=== PATIENT | male | born 1955 | race Caucasian/White ===

== ENCOUNTER 2018-01-06 12:53 | Observation (INO) | payer OTHER, BC ==
--- NOTE | 2018-01-06 13:34 | RAD REPORT ---
EXAM DESCRIPTION: CT - Head Brain Wo Cont - 01/06/2018 1:24 pm CLINICAL HISTORY: Mental status change, weakness COMPARISON: None. TECHNIQUE: Axial 5 mm thick images of the head were obtained without IV contrast. All CT scans are performed using dose optimization technique as appropriate and may include automated exposure control or mA/KV adjustment according to patient size. FINDINGS: No intracranial hemorrhage, mass, edema or shift of mid-line structures. No acute cortical based infarction. No cortical edema or sulcal effacement. Moderate severity atrophy and chronic isch emic changes are present. Ventriculomegaly is present. This is out of proportion to the amount of vol ume loss. Physiologic calcifications are present. Mastoid air cells are clear. Patchy mucosal thickening in the ethmoid air cells. Small air-fluid leve ls in the maxillary sinuses. No acute bony findings. IMPRESSION: No acute infarction identifiable. No hemorrhage, mass or acute intracranial finding. At least moderate severity atrophy and chronic ischemic changes are present. Chronic ischemic change can mask nonhemorrhagic acute CVA. Ventriculomegaly out of proportion to volume loss. Correlation is needed with any normal pressure hyd rocephalus clinical findings. Bilateral maxillary sinusitis.
--- NOTE | 2018-01-06 14:13 | EDPHYS ---
Physician Documentation [facility] Name: Justin Cedeno Age: 62 yrs Sex: Male : 1955 Arrival Date: 01/06/2018 Time: 12:58 Bed 26 Private MD: Jefry Felipe S ED Physician Car Gorman HPI: 01/06 14:07 This 62 yrs old Male presents to ER via Wheelchair with complaints of Altered torrey Mental Status. 14:07 The patient presents with confusion, decreased mental status, trouble concentrating. torrey Onset: The symptoms/episode began/occurred 3 day(s) ago. Possible causes: sepsis, unknown. Associated signs and symptoms: Pertinent positives: confusion, lightheadedness. Current symptoms: In the emergency department the patient's symptoms are unchanged from the initial presentation, despite home interventions. Patient's baseline: Neuro: alert but confused. The patient has experienced similar episodes in the past, a few times. Historical: - Allergies: 12:58 No Known Allergies; aa5 - Home Meds: 12:58 lisinopril 5 mg Oral tab 1 tab once daily [Active]; Namenda 10 mg oral tab 1 tab 2 aa5 times per day [Active]; donepezil 10 mg oral tab twice a day [Active]; - PMHx: 12:58 Hypertension; Dementia; aa5 - PSHx: 12:58 Knee surgery; Tonsillectomy; aa5 - Immunization history:: Pneumococcal vaccine is not up to date, Flu vaccine is up to date. - Social history:: Smoking status: Patient/guardian denies using tobacco. - Ebola Screening: : No symptoms or risks identified at this time. - Family history:: not pertinent. ROS: 14:07 Constitutional: Negative for fever, chills, and weight loss, Eyes: Negative for injury, torrey pain, redness, and discharge, ENT: Negative for injury, pain, and discharge, Neck: Negative for injury, pain, and swelling, Cardiovascular: Negative for chest pain, palpitations, and edema, Abdomen/GI: Negative for abdominal pain, nausea, vomiting, diarrhea, and constipation, Back: Negative for injury and pain, : Negative for injury, bleeding, discharge, and swelling, MS/Extremity: Negative for injury and deformity, Skin: Negative for injury, rash, and discoloration, Psych: Negative for depression, anxiety, suicide ideation, homicidal ideation, and hallucinations, Allergy/Immunology: Negative for hives, rash, and allergies, Endocrine: Negative for neck swelling, polydipsia, polyuria, polyphagia, and marked weight changes, Hematologic/Lymphatic: Negative for swollen nodes, abnormal bleeding, and unusual bruising. 14:07 Respiratory: Positive for cough, with no reported sputum. 14:07 Neuro: Positive for altered mental status, known dementia. Exam: 14:07 Constitutional: This is a well developed, well nourished patient who is awake, alert, torrey and in no acute distress. Head/Face: Normocephalic, atraumatic. Eyes: Pupils equal round and reactive to light, extra-ocular motions intact. Lids and lashes normal. Conjunctiva and sclera are non-icteric and not injected. Cornea within normal limits. Periorbital areas with no swelling, redness, or edema. ENT: Nares patent. No nasal discharge, no septal abnormalities noted. Tympanic membranes are normal and external auditory canals are clear. Oropharynx with no redness, swelling, or masses, exudates, or evidence of obstruction, uvula midline. Mucous membranes moist. Neck: Trachea midline, no thyromegaly or masses palpated, and no cervical lymphadenopathy. Supple, full range of motion without nuchal rigidity, or vertebral point tenderness. No Meningismus. Chest/axilla: Normal chest wall appearance and motion. Nontender with no deformity. No lesions are appreciated. Cardiovascular: Regular rate and rhythm with a normal S1 and S2. No gallops, murmurs, or rubs. Normal PMI, no JVD. No pulse deficits. Respiratory: Lungs have equal breath sounds bilaterally, clear to auscultation and percussion. No rales, rhonchi or wheezes noted. No increased work of breathing, no retractions or nasal flaring. Abdomen/GI: Soft, non-tender, with normal bowel sounds. No distension or tympany. No guarding or rebound. No evidence of tenderness throughout. Back: No spinal tenderness. No costovertebral tenderness. Full range of motion. Male : Normal genitalia with no discharge or lesions. Skin: Warm, dry with normal turgor. Normal color with no rashes, no lesions, and no evidence of cellulitis. MS/ Extremity: Pulses equal, no cyanosis. Neurovascular intact. Full, normal range of motion. Psych: Awake, alert, with orientation to person, place and time. Behavior, mood, and affect are within normal limits. 14:07 Neuro: Orientation: appropriate for stated age, no acute changes, Mentation: slow to respond, Memory: unable to test, Cranial nerves: is grossly normal based on the patient's age, no acute changes, Cerebellar function: is grossly normal based on the patient's age, no acute changes, Motor: moves all fours, Sensation: no obvious gross deficits, appropriate Gait: not tested. Deep tendon reflexes are 2+ (normal) in the bilateral brachioradialis, bicep, tricep and patellar and Achilles tendons, Babinski testing is normal, seizure activity, is not displayed by the patient. Vital Signs: 13:00 BP 116 / 78; Pulse 70; Resp 16 S; Temp 99.7(O); Pulse Ox 95% on R/A; Weight 81.65 kg aa5 (R); Height 5 ft. 10 in. (177.80 cm) (R); 15:00 Pulse 63; Resp 16; Pulse Ox 98% ; sv 16:27 BP 121 / 78; Pulse 65; Resp 16; Pulse Ox 99% on R/A; sv 17:15 BP 120 / 78; Pulse 60; Resp 12; Pulse Ox 97% ; sv 18:00 BP 113 / 75; Pulse 68; Resp 16; Pulse Ox 100% ; sv 18:45 BP 109 / 80; Pulse 66; Resp 14; Pulse Ox 99% ; sv 19:30 BP 112 / 76; Pulse 66; Resp 18; Pulse Ox 96% ; aj1 13:00 Body Mass Index 25.83 (81.65 kg, 177.80 cm) aa5 MDM: 13:07 Patient medically screened. [facility] 14:07 Data reviewed: vital signs, nurses notes, lab test result(s), EKG, radiologic studies, [facility] CT scan, plain films. 01/06 13:09 Order name: Basic Metabolic Panel; Complete Time: 16:55 [facility] 01/06 13:09 Order name: CBC with Diff; Complete Time: 16:55 [facility] 01/06 13:09 Order name: LFT's; Complete Time: 16:55 [facility] 01/06 13:09 Order name: Magnesium; Complete Time: 16:55 [facility] 01/06 13:09 Order name: NT PRO-BNP; Complete Time: 16:55 [facility] 01/06 13:09 Order name: PT-INR; Complete Time: 16:55 [facility] 01/06 13:09 Order name: Troponin (emerg Dept Use Only); Complete Time: 16:55 [facility] 01/06 13:09 Order name: XRAY Chest (1 view); Complete Time: 16:55 [facility] 01/06 13:09 Order name: Urine Culture [facility] 01/06 13:09 Order name: Lipase; Complete Time: 16:55 [facility] 01/06 13:09 Order name: Blood Culture Adult (2) [facility] 01/06 14:04 Order name: Lactate; Complete Time: 16:55 sv 01/06 15:10 Order name: Urine Dipstick--Ancillary (enter results) 01/06 15:42 Order name: Urine Dipstick-Ancillary; Complete Time: 16:55 EDMS 01/06 13:09 Order name: EKG; Complete Time: 13:10 [facility] 01/06 13:09 Order name: Cardiac monitoring; Complete Time: 15:21 [facility] 01/06 13:09 Order name: EKG - Nurse/Tech; Complete Time: 15:21 [facility] 01/06 13:09 Order name: IV Saline Lock; Complete Time: 15:21 [facility] 01/06 13:09 Order name: Labs collected and sent; Complete Time: 15:21 [facility] 01/06 13:09 Order name: O2 Per Protocol; Complete Time: 15:21 [facility] 01/06 13:09 Order name: O2 Sat Monitoring; Complete Time: 15:22 [facility] 01/06 13:09 Order name: CT Head Brain wo Cont; Complete Time: 14:06 [facility] 01/06 13:09 Order name: Urine Dipstick-Ancillary (obtain specimen); Complete Time: 15:21 [facility] Administered Medications: 15:05 Drug: NS 0.9% 1000 ml Route: IV; Rate: 1 bolus; Site: left hand; sv 16:00 Follow up: Response: No adverse reaction; IV Status: Completed infusion; IV Intake: sv 1000ml 15:05 Drug: foLIC Acid 1 mg Route: IVPB; Site: left hand; sv 15:06 Follow up: Response: No adverse reaction; IV Status: Completed infusion sv 15:06 Drug: Rocephin - (cefTRIAXone) 2 grams Route: IVPB; Infused Over: 30 mins; Site: left sv forearm; 15:10 Follow up: Response: No adverse reaction; IV Status: Completed infusion; IV Intake: 20mlsv 18:15 Drug: NS 0.9% 1000 ml Route: IV; Rate: 125 ml/hr; Site: left hand; sv 20:16 Follow up: IV Status: Completed infusion; IV Intake: 250ml aj1 Disposition: 01/06/18 14:12 Hospitalization ordered by Abdullahi Juarez for Inpatient Admission. Preliminary diagnosis are Altered mental status, unspecified, Dementia in other diseases classified elsewhere, Acute maxillary sinusitis. - Bed requested for Telemetry/MedSurg (Inpatient). - Status is Inpatient Admission. aj1 - Condition is Fair. - Problem is new. - Symptoms have improved. UTI on Admission? No Signatures: Dispatcher [employer] EDTaya Hightower RN RN aj1 Hanna Connelly RN RN sv Anderson, Corey, MD MD cha Solis, Maria ms Calderon, Audri RN RN aa5 Corrections: (The following items were deleted from the chart) 14:19 14:12 Hospitalization Ordered by Loulou Bell MD for Inpatient Admission. Preliminary torrey diagnosis is Altered mental status, unspecified; Dementia in other diseases classified elsewhere. Bed requested for Telemetry/MedSurg (Inpatient). Status is Inpatient Admission. Condition is Fair. Problem is new. Symptoms have improved. UTI on Admission? No. torrey 14:22 14:19 01/06/2018 14:12 Hospitalization Ordered by Loulou Bell MD for Inpatient torrey Admission. Preliminary diagnosis is Altered mental status, unspecified; Dementia in other diseases classified elsewhere; Acute maxillary sinusitis. Bed requested for Telemetry/MedSurg (Inpatient). Status is Inpatient Admission. Condition is Fair. Problem is new. Symptoms have improved. UTI on Admission? No. torrey 19:01 14:22 01/06/2018 14:12 Hospitalization Ordered by Abdullahi Juarez MD for Inpatient ms Admission. Preliminary diagnosis is Altered mental status, unspecified; Dementia in other diseases classified elsewhere; Acute maxillary sinusitis. Bed requested for Telemetry/MedSurg (Inpatient). Status is Inpatient Admission. Condition is Fair. Problem is new. Symptoms have improved. UTI on Admission? No. torrey 20:26 19:01 01/06/2018 14:12 Hospitalization Ordered by Abdullahi Juarez MD for Inpatient aj1 Admission. Preliminary diagnosis is Altered mental status, unspecified; Dementia in other diseases classified elsewhere; Acute maxillary sinusitis. Bed requested for Telemetry/MedSurg (Inpatient). Status is Inpatient Admission. Condition is Fair. Problem is new. Symptoms have improved. UTI on Admission? No. ms
--- NOTE | 2018-01-06 14:13 | ER ---
Nurse's Notes [facility] Name: Justin Cedeno Age: 62 yrs Sex: Male : 1955 Arrival Date: 01/06/2018 Time: 12:58 Bed 26 Private MD: Jefry Felipe S Diagnosis: Altered mental status, unspecified;Dementia in other diseases classified elsewhere;Acute maxillary sinusitis Presentation: 01/06 12:58 Transition of care: patient was not received from another setting of care. Onset of aa5 symptoms was January 06, 2018. 12:58 Method Of Arrival: Wheelchair aa5 12:58 Presenting complaint: states: "he normally walks and today he's been so weak that aa5 he is not walking". Pt's states "He has dementia and he doesn't talk much but he seems more confused than usual". Risk Assessment: Do you want to hurt yourself or someone else? Unable to obtain. Care prior to arrival: None. 12:58 Acuity: KAYLA 2 aa5 14:50 Initial Sepsis Screen: Does the patient meet any 2 criteria? No. Patient's initial sv sepsis screen is negative. Does the patient have a suspected source of infection? No. Patient's initial sepsis screen is negative. Historical: - Allergies: 12:58 No Known Allergies; aa5 - Home Meds: 12:58 lisinopril 5 mg Oral tab 1 tab once daily [Active]; Namenda 10 mg oral tab 1 tab 2 aa5 times per day [Active]; donepezil 10 mg oral tab twice a day [Active]; - PMHx: 12:58 Hypertension; Dementia; aa5 - PSHx: 12:58 Knee surgery; Tonsillectomy; aa5 - Immunization history:: Pneumococcal vaccine is not up to date, Flu vaccine is up to date. - Social history:: Smoking status: Patient/guardian denies using tobacco. - Ebola Screening: : No symptoms or risks identified at this time. - Family history:: not pertinent. Screenin:50 Abuse screen: Denies threats or abuse. Denies injuries from another. Nutritional sv screening: No deficits noted. Tuberculosis screening: No symptoms or risk factors identified. Fall Risk No fall in past 12 months (0 pts). Secondary diagnosis (15 points) dementia, IV access (20 points). Ambulatory Aid- None/Bed Rest/Nurse Assist (0 pts). Gait- Normal/Bed Rest/Wheelchair (0 pts) Mental Status- Overestimates/Forgets Limitations (15 pts.). Total Jara Fall Scale indicates High Risk Score (45 or more points). Fall prevention measures have been instituted. Side Rails Up X 2 Placed Close to Nursing Station Frequent Obs/Assessments Occuring Family Present and informed to notify staff if the need to leave the bedside As available patient and family educated on Fall Prevention Program and Strategies. Assessment: 14:50 General: Appears in no apparent distress. comfortable, well developed, Behavior is sv calm, cooperative, appropriate for age. Pain: Denies pain. Neuro: Level of Consciousness is awake, alert, confused, Oriented to person, Moves all extremities. Full function Speech is normal. Respiratory: Respiratory effort is even, unlabored, Respiratory pattern is regular, symmetrical. Derm: Skin is pink, warm \\T\\ dry. 16:00 Reassessment: Patient appears in no apparent distress at this time. No changes from sv previously documented assessment. Patient and/or family updated on plan of care and expected duration. Pain level reassessed. 18:15 Reassessment: Pt cleaned of urinary incontinence, sheets changed and clean diaper sv placed on pt. 18:15 Reassessment: Patient appears in no apparent distress at this time. No changes from sv previously documented assessment. Patient and/or family updated on plan of care and expected duration. Pain level reassessed. 19:15 Reassessment: Patient and/or family updated on plan of care and expected duration. Pain aj1 level reassessed. General: Appears in no apparent distress. comfortable, Behavior is calm, cooperative, appropriate for age. Pain: Denies pain. Neuro: Level of Consciousness is awake, alert, confused, Oriented to person, Speech is normal. Cardiovascular: Patient's skin is warm and dry. Respiratory: Airway is patent Respiratory effort is even, unlabored, Respiratory pattern is regular, symmetrical. GI: No signs and/or symptoms were reported involving the gastrointestinal system. Derm: Skin is pink, warm \\T\\ dry. normal. 20:14 Reassessment: Patient appears in no apparent distress at this time. No changes from aj1 previously documented assessment. Patient and/or family updated on plan of care and expected duration. Pain level reassessed. Vital Signs: 13:00 BP 116 / 78; Pulse 70; Resp 16 S; Temp 99.7(O); Pulse Ox 95% on R/A; Weight 81.65 kg aa5 (R); Height 5 ft. 10 in. (177.80 cm) (R); 15:00 Pulse 63; Resp 16; Pulse Ox 98% ; sv 16:27 BP 121 / 78; Pulse 65; Resp 16; Pulse Ox 99% on R/A; sv 17:15 BP 120 / 78; Pulse 60; Resp 12; Pulse Ox 97% ; sv 18:00 BP 113 / 75; Pulse 68; Resp 16; Pulse Ox 100% ; sv 18:45 BP 109 / 80; Pulse 66; Resp 14; Pulse Ox 99% ; sv 19:30 BP 112 / 76; Pulse 66; Resp 18; Pulse Ox 96% ; aj1 13:00 Body Mass Index 25.83 (81.65 kg, 177.80 cm) aa5 ED Course: 12:58 Patient arrived in ED. mr 12:58 Jefry Felipe MD is Private Physician. mr 12:58 Arm band placed on. aa5 13:07 Car Gorman MD is Attending Physician. torrey 13:10 Triage completed. aa5 13:16 Hanna Connelly, RN is Primary Nurse. sv 13:24 CT Head Brain wo Cont In Process Unspecified. EDMS 14:12 Loulou Bell MD is Hospitalizing Provider. torrey 14:13 XRAY Chest (1 view) In Process Unspecified. EDMS 14:21 Abdullahi Juarez MD is Hospitalizing Provider. torrey 14:50 Patient has correct armband on for positive identification. Placed in gown. Bed in low sv position. Call light in reach. Side rails up X2. Adult w/ patient. plant anatomy teacher on. Pulse ox on. NIBP on. Door closed. Warm blanket given. Head of bed elevated. 14:50 Initial lab(s) drawn, by me, sent to lab. First set of blood cultures drawn by me. sv Inserted saline lock: 22 gauge in left hand, using aseptic technique. Blood collected. Flushed left hand with 5 ml normal saline. 15:05 Second set of blood cultures drawn by me. sv 15:21 Urine Dipstick--Ancillary (enter results) Sent. sv 19:06 Primary Nurse role handed off by Hanna Connelly RN aj1 19:06 Taya Garcia, RN is Primary Nurse. aj1 19:11 Report given to Taya RAMOS. sv 20:11 Report given to RACHEL Gamino on 2nd floor. aj1 20:14 No provider procedures requiring assistance completed. Patient admitted, IV remains in aj1 place. Administered Medications: 15:05 Drug: NS 0.9% 1000 ml Route: IV; Rate: 1 bolus; Site: left hand; sv 16:00 Follow up: Response: No adverse reaction; IV Status: Completed infusion; IV Intake: sv 1000ml 15:05 Drug: foLIC Acid 1 mg Route: IVPB; Site: left hand; sv 15:06 Follow up: Response: No adverse reaction; IV Status: Completed infusion sv 15:06 Drug: Rocephin - (cefTRIAXone) 2 grams Route: IVPB; Infused Over: 30 mins; Site: left sv forearm; 15:10 Follow up: Response: No adverse reaction; IV Status: Completed infusion; IV Intake: 20mlsv 18:15 Drug: NS 0.9% 1000 ml Route: IV; Rate: 125 ml/hr; Site: left hand; sv 20:16 Follow up: IV Status: Completed infusion; IV Intake: 250ml aj1 Intake: 15:10 IV: 20ml; Total: 20ml. sv 16:00 IV: 1000ml; Total: 1020ml. sv 20:16 IV: 250ml; Total: 1270ml. aj1 Outcome: 14:12 Decision to Hospitalize by Provider. torrey 20:25 Admitted to Med/surg accompanied by nurse, via stretcher. aj1 20:25 Condition: stable 20:25 Discharge instructions given to family, Instructed on the need for admit, Demonstrated understanding of instructions. 20:26 Patient left the ED. aj1 Signatures: Dispatcher [employer] EDMS Taya Garcia RN RN aj1 Hanna Connelly RN RN sv Anderson, Corey, MD MD cha Rivera, Irais Mccann, RN RN aa5 Corrections: (The following items were deleted from the chart) 17:21 16:50 Inserted saline lock: 22 gauge in left hand, using aseptic technique. Blood sv collected. Flushed left hand with 5 ml normal saline sv 17:21 16:50 Initial lab(s) drawn, by pr, sent to lab. First set of blood cultures drawn by sv me, sv
[2018-01-06 14:17] LABS: Absolute Lymphocytes (CBC) 0.8 K/uL (0.7-4.9); Absolute Monocytes 0.6 K/uL (0.1-1.3); Absolute Neutrophil 6.5 K/uL (1.8-8.0); Basophils % 0.2 % (0-1.3); Eosinophils % 0.4 % (0-4.4); Hematocrit 42.9 % (39.6-49.0); Lymphocytes % 9.8 % (15.3-44.8); MCH 31.7 pg (27.0-35.0); MCV 91.4 fL (80-100); MPV 8.2 fL (7.6-11.3); Monocytes % 8.1 % (3.3-12.3); RBC Red Blood Cell Count 4.69 M/uL (4.33-5.43)
[2018-01-06 14:18] LABS: Protime INR 1.05
[2018-01-06 14:34] LABS: ALT/SGPT 33 U/L (12-78); AST/SGOT 19 U/L (15-37); Albumin 3.4 g/dL (3.4-5.0); Alkaline Phosphatase 104 U/L (45-117); BUN Blood Urea Nitrogen 13 mg/dL (7-18); Bicarbonate 26 mmol/L (21-32); Bilirubin Direct 0.2 mg/dL (0-0.2); Bilirubin Total 0.8 mg/dL (0.2-1.0); Glucose Level 108 mg/dL (74-106); Lipase 168 U/L (73-393); Magnesium 2.5 mg/dL (1.8-2.4); NT PRO-BNP 245 pg/mL (<125); Potassium 4.2 mmol/L (3.5-5.1); Sodium Level 139 mmol/L (136-145); Troponin (Emerg Dept Use Only) < 0.02 ng/mL (0.0-0.045)
[2018-01-06] MEDS ORDERED: FOLIC ACID 5 MG/ML VIAL ONE (14:49)
[2018-01-06] MEDS ORDERED: NA CHLORIDE 0.9% 1,000 ML ONE ×2 (14:49→17:47)
[2018-01-06] MEDS ORDERED: CEFTRIAXONE/SWI 1gm 2 GM/20 ML SYR ONE (14:50)
[2018-01-06 15:40] LABS: Urine Blood NEGATIVE (NEG); Urine Glucose NEGATIVE (NEG); Urine Protein TRACE (NEG)
--- NOTE | 2018-01-06 15:43 | RAD REPORT ---
EXAM DESCRIPTION: RAD - Chest Single View - 01/06/2018 2:12 pm CLINICAL HISTORY: Cough, dyspnea on exertion COMPARISON: July 2007 TECHNIQUE: AP portable chest image was obtained 1316 hours . FINDINGS: Lung volumes are low. No pulmonary edema, failure or volume overload finding. No focal mas s or consolidation. Heart and vasculature are normal. No measurable pleural effusion and no pneumotho rax. No acute bony abnormality seen. No acute aortic findings suspected. IMPRESSION: Shallow inspiration exam showing no acute cardiopulmonary finding.
[2018-01-06] MEDS ORDERED: ACETAMINOPHEN 500 MG TAB PO PRN (21:13)
[2018-01-06] MEDS: NA CHLORIDE 0.9% 1,000 ML IV SCH (22:14)
[2018-01-06 22:27] VITALS: BMI 25.8
[2018-01-07 05:44] LABS: Absolute Monocytes 0.5 K/uL (0.1-1.3); Absolute Neutrophil 3.9 K/uL (1.8-8.0); Basophils % 0.2 % (0-1.3); Eosinophils % 1.1 % (0-4.4); Hematocrit 40.7 % (39.6-49.0); MCH 31.8 pg (27.0-35.0); MCV 91.6 fL (80-100); MPV 8.4 fL (7.6-11.3); Monocytes % 9.7 % (3.3-12.3); RBC Red Blood Cell Count 4.44 M/uL (4.33-5.43)
[2018-01-07 05:54] LABS: Albumin 3.1 g/dL (3.4-5.0); Bilirubin Total 0.5 mg/dL (0.2-1.0); Potassium 3.8 mmol/L (3.5-5.1); Protein, Total 6.4 g/dL (6.4-8.2)
[2018-01-07] MEDS ORDERED: KCL 20 MEQ/100 mL IVPB 20 MEQ/100 ML BAG IV SCH (07:00)
--- NOTE | 2018-01-07 07:02 | EKG ---
Test Date: 2018-01-06 Test Time: 13:39:06 Senior Director Marketing: ESTHER MEASUREMENT RESULTS: Intervals: Rate: 68 NE: 150 QRSD: 98 QT: 394 QTc: 418 [place]: P: 53 NE: 150 QRS: 6 T: 54 INTERPRETIVE STATEMENTS: Normal sinus rhythm Incomplete right bundle branch block Borderline ECG Compared to ECG 01/06/2018 13:38:20 No significant changes Electronically Signed On 01-08-18 06:12:20 FRAME TABLE OPERATOR by Vinicio Alvarenga
--- NOTE | 2018-01-07 11:19 | P.HP ---
Certification for Inpatient Patient admitted to: Observation With expected LOS: <2 Midnights Patient will require the following post-hospital care: None Practitioner: I am a practitioner with admitting privileges, knowledge of patient current condition, hospital course, and medical plan of care. Services: Services provided to patient in accordance with Admission requirements found in Title 42 Section 412.3 of the Code of Federal Regulations Patient History Date of Service: 01/06/18 Reason for admission: Altered mental status History of Present Illness: Patient is a 62-year-old gentleman with advanced dementia who does not really give much of a history. History is obtained from the chart. Patient has progressive dementia and does not really communicate effectively. He does not really answer a lot of my questions. He apparently has been confused for the last few days and his confusion was much worse than normal. The family brought him into the emergency room for further evaluation. In the ER patient's workup has been unremarkable. Patient's labs and chest x-ray and UA have been unremarkable as well. His CT scan just showed advanced atrophy for age and increased hydrocephalus and ventriculomegaly which could indicate normal pressure hydrocephalus. The triad includes incontinence, ataxia, and altered mental status. Patient will be admitted for observation to see if his mentation improves over the next 24-48 hrs. Allergies No Known Allergies Allergy (Unverified 01/06/18 19:09) Home Medications: Donepezil [Aricept] 10 mg PO BID 01/06/18 Lisinopril [Prinivil] 5 mg PO DAILY 01/06/18 Memantine HCl [Namenda] 10 mg PO BID 01/06/18 - Past Medical/Surgical History Has patient received pneumonia vaccine in the past: No Diabetic: No -: HTN -: Dementia -: Knee SX -: Tonsillectomy - Family History Father Family History: Reviewed- Non-Contributory - Social History Smoking Status: Never smoker Alcohol use: No CD- Drugs: No Caffeine use: No Place of Residence: Home Review of Systems 10-point ROS is otherwise unremarkable Physical Examination - Vital Signs Temperature: 97.6 F Blood Pressure: 111/69 Pulse: 61 Respirations: 16 Pulse Ox (%): 93 - Physical Exam General: Alert, Confused (Follows some commands) HEENT: Atraumatic, Normocephalic, PERRLA, Mucous membr. moist/pink Neck: Supple, 2+ carotid pulse no bruit, JVD not distended Respiratory: Clear to auscultation bilaterally, Normal air movement Cardiovascular: Regular rate/rhythm, Normal S1 S2, No murmurs Gastrointestinal: Normal bowel sounds, Hypoactive, Soft and benign, Non- distended Musculoskeletal: No clubbing, No swelling, No contractures Integumentary: No rashes Neurological: Normal tone, Sensation intact, Cranial nerves 3-12 intact, Abnormal gait, Abnormal speech, Abnormal strength - Studies Laboratory Data (last 24 hrs) 01/06/18 13:50: PT 12.4, INR 1.05 01/06/18 13:50: WBC 8.0, Hgb 14.9, Hct 42.9, Plt Count 208 01/06/18 13:50: Sodium 139, Potassium 4.2, BUN 13, Creatinine 1.10, Glucose 108 H, Magnesium 2.5 H, Total Bilirubin 0.8, AST 19, ALT 33, Alkaline Phosphatase 104, Lipase 168 Microbiology Data (last 24 hrs): 01/06/18 14:05 Blood - Blood Anaerobic Blood Culture - Final 01/06/18 13:50 Blood - Blood Anaerobic Blood Culture - Final Assessment & Plan - Problems (Diagnosis) (1) Altered mental status Current Visit: Yes Status: Acute (2) Dementia in Alzheimer's disease Current Visit: Yes Status: Acute (3) NPH (normal pressure hydrocephalus) Current Visit: Yes Status: Acute - Plan Plan: 1. Observation 2. Imaging study if symptoms worsen 3. Gentle hydration 4. Monitor electrolytes 5. Out of bed and ambulate 6. Possible discharge home in the morning after discussion with family 7. If symptoms do not improve then may need an LP time measure opening pressure 8. GI and DVT prophylaxis Discharge Plan: Home Plan to discharge in: 48 Hours - Advance Directives Does patient have a Living Will: No Does patient have a Durable POA for Healthcare: Yes - Code Status/Comfort Care Code Status Assessed: Yes Code Status: Full Code Critical Care: No Time Spent Managing PTS Care (In Minutes): 50
--- NOTE | 2018-01-07 12:58 | P.PN ---
Subjective Date of Service: 01/07/18 Chief Complaint: Altered mental status Subjective: No new changes, No C/O voiced, Improving Patient seen and examined at bedside. at bedside. Case discussed with nursing staff. Per , baseline: Walks independently, he does not talk that much. No acute events noted overnight Review of Systems As noted Physical Examination - Vital Signs Temperature: 98.9 F Blood Pressure: 110/77 Pulse: 67 Respirations: 16 Pulse Ox (%): 94 - Physical Exam General: In no apparent distress, Other (Asleep, the wakes up to calling his name. Unable to really talk with/conversation with. Per , he is at his baseline from that point of view.) HEENT: Atraumatic, PERRLA, EOMI Neck: Supple, JVD not distended Respiratory: Clear to auscultation bilaterally, Normal air movement Cardiovascular: Regular rate/rhythm, Normal S1 S2 Gastrointestinal: Normal bowel sounds, No tenderness Musculoskeletal: No tenderness Integumentary: No rashes Neurological: Normal speech, Normal tone, Normal affect - Studies Laboratory Data (last 24 hrs) 01/06/18 13:50: PT 12.4, INR 1.05 01/06/18 13:50: WBC 8.0, Hgb 14.9, Hct 42.9, Plt Count 208 01/06/18 13:50: Sodium 139, Potassium 4.2, BUN 13, Creatinine 1.10, Glucose 108 H, Magnesium 2.5 H, Total Bilirubin 0.8, AST 19, ALT 33, Alkaline Phosphatase 104, Lipase 168 Microbiology Data (last 24 hrs): 01/06/18 14:05 Blood - Blood Anaerobic Blood Culture - Final 01/06/18 13:50 Blood - Blood Anaerobic Blood Culture - Final Assessment And Plan - Plan (1) Altered mental status Current Visit: Yes Status: Acute (2) Dementia in Alzheimer's disease Current Visit: Yes Status: Acute (3) NPH (normal pressure hydrocephalus) Current Visit: Yes Status: Acute - Plan Plan: 1. Observation 2. Imaging study if symptoms worsen 3. Gentle hydration 4. Monitor electrolytes 5. Out of bed and ambulate. Physical therapy consult placed 6. If symptoms do not improve then may need an LP time measure opening pressure 7. Bedside swallow study ordered. If if he passes swallow study, start regular diet 8. GI and DVT prophylaxis Disposition: Likely discharge tomorrow with outpatient physical therapy set up.
[2018-01-07] MEDS: NA CHLORIDE 0.9% 1,000 ML IV SCH (15:48)
[2018-01-08 05:30] LABS: Absolute Lymphocytes (CBC) 1.6 K/uL (0.7-4.9); Absolute Monocytes 0.6 K/uL (0.1-1.3); Basophils % 0.5 % (0-1.3); Eosinophils % 2.5 % (0-4.4); Hematocrit 40.8 % (39.6-49.0); Lymphocytes % 30.3 % (15.3-44.8); MCH 31.7 pg (27.0-35.0); MCV 90.7 fL (80-100); MPV 8.3 fL (7.6-11.3); Monocytes % 10.7 % (3.3-12.3)
[2018-01-08 05:50] LABS: Albumin 3.1 g/dL (3.4-5.0); Bilirubin Total 0.4 mg/dL (0.2-1.0); Potassium 3.8 mmol/L (3.5-5.1); Protein, Total 6.5 g/dL (6.4-8.2)
[2018-01-08] MEDS ORDERED: POTASSIUM CL SA 10 MEQ TAB PO ONE (06:00)
[2018-01-08 08:52] VITALS: TEMP 98
[2018-01-08 10:23] VITALS: O2SAT 98
[2018-01-08 12:43] VITALS: BP 122/60
--- NOTE | 2018-01-08 16:27 | P.DS ---
Admission Date: 01/06/18 Discharge Date: 01/08/18 Disposition: ROUTINE DISCHARGE Discharge Condition: GOOD Reason for Admission: Altered mental status Brief History of Present Illness: Patient is a 62-year-old gentleman with advanced dementia who does not really give much of a history. History is obtained from the chart. Patient has progressive dementia and does not really communicate effectively. He does not really answer a lot of my questions. He apparently has been confused for the last few days and his confusion was much worse than normal. The family brought him into the emergency room for further evaluation. In the ER patient's workup has been unremarkable. Patient's labs and chest x-ray and UA have been unremarkable as well. His CT scan just showed advanced atrophy for age and increased hydrocephalus and ventriculomegaly which could indicate normal pressure hydrocephalus. The triad includes incontinence, ataxia, and altered mental status. Patient will be admitted for observation to see if his mentation improves over the next 24-48 hrs. Hospital Course: Patient was admitted for observation for altered mental status. He was given gentle hydration, electrolytes were monitored, and medically he remained stable. Physical therapy consult was ordered, he you did get out of bed and walked around the queen with physical therapy without any problems. A bedside swallow study was also done, which patient has. Regular diet was started and patient was tolerating a regular diet. His mentation returned back to baseline , per at bedside. Physical therapy recommended he will benefit from outpatient physical therapy. Social work order placed, outpatient physical therapy will be set up by social work. At the time of discharge, patient was arousable, alert, though not responsive, which is his baseline. All of his 's questions were answered and she verbalized understanding. Vital Signs/Physical Exam: Temp Pulse Resp BP Pulse Ox 98.0 F 72 18 122/60 98 01/08/18 12:00 01/08/18 12:00 01/08/18 12:00 01/08/18 12:00 01/08/18 12:00 General: Alert, In no apparent distress HEENT: Atraumatic, PERRLA, EOMI Neck: Supple, JVD not distended Respiratory: Clear to auscultation bilaterally, Normal air movement Cardiovascular: Regular rate/rhythm, Normal S1 S2 Gastrointestinal: Normal bowel sounds, No tenderness Musculoskeletal: No tenderness Integumentary: No rashes Neurological: Normal speech, Normal tone, Normal affect Lymphatics: No axilla or inguinal lymphadenopathy Laboratory Data at Discharge: WBC 5.3 K/uL (4.3-10.9) 01/08/18 04:55 Hgb 14.3 g/dL (13.6-17.9) 01/08/18 04:55 Hct 40.8 % (39.6-49.0) 01/08/18 04:55 Plt Count 178 K/uL (152-406) 01/08/18 04:55 PT 12.4 SECONDS (9.5-12.5) 01/06/18 13:50 INR 1.05 01/06/18 13:50 Sodium 141 mmol/L (136-145) 01/08/18 04:55 Potassium 3.8 mmol/L (3.5-5.1) 01/08/18 04:55 BUN 14 mg/dL (7-18) 01/08/18 04:55 Creatinine 0.90 mg/dL (0.55-1.3) 01/08/18 04:55 Glucose 90 mg/dL (74-106) 01/08/18 04:55 Magnesium 2.5 mg/dL (1.8-2.4) H 01/06/18 13:50 Total Bilirubin 0.4 mg/dL (0.2-1.0) 01/08/18 04:55 AST 17 U/L (15-37) 01/08/18 04:55 ALT 23 U/L (12-78) 01/08/18 04:55 Alkaline Phosphatase 91 U/L (45-117) 01/08/18 04:55 Lipase 168 U/L (73-393) 01/06/18 13:50 Home Medications: Donepezil [Aricept*] 10 mg PO BID 01/06/18 Lisinopril [Prinivil] 5 mg PO DAILY 01/06/18 Memantine HCl [Namenda*] 10 mg PO BID 01/06/18 Patient Discharge Instructions: Please follow up with your primary care physician in 1 week. We will contact you regarding outpatient physical therapy Diet: Regular Activity: Ad eloy Physician Review: Patient Assessed, Agree with Above Assessment and Plan Time spent managing pt's care (in minutes): 45
== END 2018-01-08 16:15 | disposition home or self-care (01) ==
LOC: ER 12:53 → ERHOLD 14:15 → INTOOBSV 14:15 → 2ND 20:10
PROVIDERS: ADMIT Family Medicine; ATTEND Hospitalist
DX: R41.82 Altered mental status, unspecified (principal); G30.9 Alzheimer's disease, unspecified; F02.80 Dementia in other diseases classified elsewhere, unspecified severity, without behavioral disturbance, psychotic disturbance, mood disturbance, and anxiety; G91.2 (Idiopathic) normal pressure hydrocephalus; I10 Essential (primary) hypertension
CPT/HCPCS: 36415 ×2; 70450; 71045; 80048; 80053 ×2; 80076; 81003; 83605; 83690; 83735; 83880; 84484; 85025 ×3; 85610; 87040 ×2; 87086; 93005; 94760 ×3; 97163; 99285; G0378 ×2; J0696; J7030 ×4; 87088